=== PATIENT | male | born 1935 | race Caucasian/White ===

== ENCOUNTER 2022-04-23 11:02 | Emergency (ER) | payer MEDICARE, BC, OTHER ==
[~2022-04-23] VITALS: Ht 185.4 cm; Wt 133.6 kg
[2022-04-23] MEDS ORDERED: VITAMIN C500 MG PO (11:54)
[2022-04-23] MEDS ORDERED: METOPROLOL SUCC25 MG PO (11:54)
[2022-04-23] MEDS ORDERED: FUROSEMIDE40 MG PO (11:54)
[2022-04-23] MEDS ORDERED: LOSARTAN POTAS100 MG PO (11:54)
[2022-04-23] MEDS ORDERED: AMLODIPINE BESY10 MG PO (11:54)
[2022-04-23] MEDS ORDERED: VICTOZA 3-0.6 MG/0.1 SQ (11:54)
[2022-04-23] MEDS ORDERED: ALPRAZOLAM1 MG PO (11:54)
[2022-04-23] MEDS ORDERED: WARFARIN SODIU2.5 MG PO (11:54)
[2022-04-23] MEDS ORDERED: CENTRUM ADULTS1 EACH PO (11:54)
[2022-04-23] MEDS ORDERED: METFORMIN HCL500 MG PO (11:54)
[2022-04-23] MEDS ORDERED: CYCLOBENZAPRINE5 MG PO (12:16)
[2022-04-23] MEDS ORDERED: IBUPROFEN200 MG PO (12:16)
== END 2022-04-23 12:22 | disposition home or self-care (01) ==
LOC: FSED 11:13
DX: S20.211A Contusion of right front wall of thorax, initial encounter (principal); W01.0XXA Fall on same level from slipping, tripping and stumbling without subsequent striking against object, initial encounter; Y93.01 Activity, walking, marching and hiking; Y92.89 Other specified places as the place of occurrence of the external cause; I10 Essential (primary) hypertension; E11.9 Type 2 diabetes mellitus without complications; E03.9 Hypothyroidism, unspecified; D68.2 Hereditary deficiency of other clotting factors; E66.9 Obesity, unspecified
CPT/HCPCS: 71046; 99283